=== PATIENT | male | born 1990 | race Caucasian/White ===

== ENCOUNTER 2016-11-06 11:55 | Emergency (ER) | payer BC, MEDICAID ==
[2016-11-06 12:08] VITALS: BP 121/82; PULSE 85; RESP 16; TEMP 97.7; O2SAT 94
--- NOTE | 2016-11-06 12:51 | UCPHY ---
H & P Patient Type: New HPI/ROS: CHIEF COMPLAINT: Wheezing History by patient HISTORY OF PRESENT ILLNESS: 26-year-old man with a long history of mild asthma with no prior history of hospitalizations although he has used prednisone in the past presents complaining of intermittent wheezing and coughing symptoms that he attributes to his asthma. He states normally uses his albuterol inhaler maybe once a week over the past few days he has been using it several times a day and now it has run out. He is new to [place] and does not currently have a physician. He has been on steroid inhaler in the past but this is also run out. He says he has prednisone pills at home but he has not taken any of these. He does not smoke. He does have seasonal allergies which she feels is a trigger. REVIEW OF SYSTEMS: As in HPI, and all other systems reviewed and are negative Smoking Status: Never smoked Physical Exam: General Appearance: Alert, well appearing, speaking full sentences. Eyes: Pupils equal and round no pallor or injection. ENT, Mouth: Mucous membranes moist. Respiratory: Normal, effort, There are no retractions, lungs few scattered expiratory wheezes but good air movement throughout. Cardiovascular: Regular rate and rhythm. Gastrointestinal: Abdomen is soft and nontender, no masses, bowel sounds normal. Neurological: Awake, alert and oriented x 3, no pronator drift, normal gait, no pronator drift Skin: Warm and dry, no rashes. Musculoskeletal: Neck is supple nontender. Extremities are symmetrical, full range of motion. Psychiatric: Patient has normal affect, there is no agitation. Constitutional: Initial Vital Signs Temperature (C) 36.5 C 11/06/16 12:02 Heart Rate 85 11/06/16 12:02 Respiratory Rate 16 11/06/16 12:02 Blood Pressure 121/82 H 11/06/16 12:02 O2 Sat (%) 94 11/06/16 12:02 O2 Delivery Mode Room Air Allergies/Adverse Reactions: amoxicillin Allergy (Verified 11/06/16 12:01) cefaclor [From [facility]] Allergy (Verified 11/06/16 12:01) Penicillins Allergy (Verified 11/06/16 12:01) nut Allergy (Severe, Uncoded 11/06/16 12:01) Anaphylaxis seafood Allergy (Severe, Uncoded 11/06/16 12:01) Anaphylaxis Home Medications: Medication Instructions Recorded Albuterol Hfa Anes Only [Proair 09/26/14 Hfa Icu (*)] Albuterol [Proventil Inhaler HFA 1 - 2 puffs IH Q4H #1 mdi 11/06/16 (*)] Fluticasone Hfa 110 Mcg [Flovent 1 puffs IH BID #1 mdi 11/06/16 110 MCG Hfa MDI (*)] Departure - Departure Disposition: Home, Routine, Self-Care Clinical Impression: Asthma attack Condition: Good Instructions: Asthma (ED) Additional Instructions: You were seen by Dr. Josephine Larsen today. Return for any worsening or new concerns. Use albuterol inhaler as needed. You may restart the steroid inhaler. Start prednisone at 40 mg daily for the next 3-5 days. Please establish primary care or a human resources director for ongoing asthma care. Referrals: NONE *PRIMARY CARE P,. [Primary Care Provider] - As per Instructions Amanuel Dubon MD [Medical Doctor] - As per Instructions Prescriptions: Albuterol [Proventil Inhaler HFA (*)] 1 - 2 puffs IH Q4H #1 mdi Fluticasone Hfa 110 Mcg [Flovent 110 MCG Hfa MDI (*)] 1 puffs IH BID #1 mdi - PQRS PQRS Measurement: NA
== END 2016-11-06 13:02 | disposition home or self-care (01) ==
LOC: CED 11:55
DX: J45.901 Unspecified asthma with (acute) exacerbation (principal); Z88.0 Allergy status to penicillin
CPT/HCPCS: 99203-PO; G0463-PO